=== PATIENT | female | born 1990 | race African-American/Black ===

== ENCOUNTER 2016-04-10 21:39 | Emergency (ER) | payer MEDICAID, OTHER ==
[~2016-04-10] VITALS: Ht 170.2 cm; Wt 93.0 kg
[~2016-04-10 21:39] MED LIST: FOLI1 PO; HYDR25 PO; PRED20 PO; RANI300T PO
[2016-04-10 21:40] VITALS: BP 116/67; PULSE 96; RESP 18; TEMP 98.1; O2SAT 93
[2016-04-10] MEDS ORDERED: FLUORESCEIN SOD 1 MG STRIP RIGHT EYE ONE (22:45)
[2016-04-10] MEDS ORDERED: PROPARACAINE HCL 0.5% OPHT SOLN 15 ML BTL RIGHT EYE ONE (22:45)
[2016-04-10] MEDS ORDERED: POLY10O RIGHT EYE (22:55)
--- NOTE | 2016-04-10 22:56 | PD ---
HPI Chief Complaint: Facial Pain or Swelling Time Seen by Provider: 22:31 Travel History International Travel<30 days: No Contact w/Intl Traveler<30days: No Traveled to known affect area: No History of Present Illness HPI 25-year-old female here for evaluation of right eye pain and discharge. Symptoms have been worsening over the last 2-3 days. The patient reports that she felt as though something bit her in the corner of her eye while sleeping the other night. She then woke up with eye pain and discharge. She is having some blurred vision in her eye. No fevers or chills. She does have some upper respiratory symptoms including a cough. She does not wear contacts. PFS Past Medical History Anemia: Yes Diminished Hearing: No ?: Not LMP: 04/05/16 : 2 Para: 2 Past Surgical History Appendectomy: Yes (CSEC) Section: Yes (X 1) Social History Alcohol Use: No Tobacco Use: No Substance Use: No Allergies-Medications (Allergen,Severity, Reaction): Uncoded Allergies: BANANAS (Allergy, Severe, 10/17/14) ANAPHYLAXIS Reported Meds & Prescriptions Reported Meds & Active Scripts Active Review of Systems Except as stated in HPI: all other systems reviewed are Neg Physical Exam Narrative GENERAL: Well-developed, well-nourished, comfortable, no acute distress. SKIN: Warm and dry. HEAD: Atraumatic. Normocephalic. EYES: Mild right periorbital swelling without warmth or erythema. Pupils equal , round, 3 mm, reactive to light. EOMI. No proptosis. Right eye there is significant scleral injection with scant purulent drainage. No hyphema, no hypopyon. Fluorescein stain shows no corneal abrasion. Intraocular pressure in the right eye is 18 mmHg. ENT: No nasal bleeding or discharge. Mucous membranes pink and moist. MUSCULOSKELETAL: No obvious deformities. No clubbing. No cyanosis. No edema. NEUROLOGICAL: Awake and alert. No obvious cranial nerve deficits. Motor grossly within normal limits. Normal speech. PSYCHIATRIC: Appropriate mood and affect; insight and judgment normal. Data Data Last Documented VS Vital Signs Date Time Temp Pulse Resp B/P Pulse Ox O2 Delivery O2 Flow Rate FiO2 04/10/16 22:17 18 04/10/16 21:40 98.1 96 116/67 93 Room Air Orders Proparacaine 0.5% Opth Soln (Alcaine 0.5 (04/10/16 22:45) Fluorescein Strip (Gxymt-C-Axnfwz A.T.) (04/10/16 22:45) Polymyxin/Trimethop Opht Soln (Polytrim (04/10/16 23:00) MDM Medical Decision Making Medical Screen Exam Complete: Yes Emergency Medical Condition: Yes Differential Diagnosis Conjunctivitis, episcleritis, scleritis, iritis, corneal abrasion, acute angle- closure glaucoma not likely Narrative Course This is a 25-year-old female who has physical exam findings and symptoms consistent with bacterial conjunctivitis. There is no proptosis. Extraocular movements are intact. There are no physical exam findings to suggest orbital cellulitis. Intraocular pressure in the right eye is 18. There are no corneal abrasions. No foreign bodies. At this point the plan is to start her on antibiotic eyedrops and follow up with an payroll accounting specialist this week. She was informed on when to return to the emergency department. She verbalizes understanding and agreement with plan. Diagnosis Primary Impression: Conjunctivitis Qualified Code: H10.9 - Conjunctivitis of right eye, unspecified conjunctivitis type Referrals: Shasta Giordano MD 3 days Eye doctor Additional Instructions: Follow-up with payroll accounting specialist Dr. Giordano or payroll accounting specialist of your choice this week. Return to the emergency department forcing symptoms or any other concerns. Scripts Polymyxin B-Trimethoprim Opth Drops (Polytrim Opth Drops)10,000-0.1 Unit/Ml-% Soln1 Drop RIGHT EYE Q6HR 10 Days Ref 0 Prov:Samuel Webster MD 04/10/16 Disposition: 01 DISCHARGE HOME Condition: Stable Samuel Webster MD Apr 10, 2016 22:55
[2016-04-10] MEDS ORDERED: POLYMYXIN/TRIMETHOPRIM OPHT SOLN 10 ML BTL RIGHT EYE ONE (23:00)
== END 2016-04-10 23:28 | disposition home or self-care (01) ==
LOC: NEPA 21:39
DX: H10.9 Unspecified conjunctivitis (principal)
CPT/HCPCS: 99283

== ENCOUNTER 2017-06-10 22:48 | Emergency (ER) | payer OTHER ==
[~2017-06-10 22:48] MED LIST changes: -FOLI1 PO; -HYDR25 PO; +POLY10O RIGHT EYE; -PRED20 PO; -RANI300T PO
[2017-06-10 23:09] VITALS: BP 135/77; PULSE 93; RESP 18; TEMP 98.6; O2SAT 100
--- NOTE | 2017-06-10 23:28 | PD ---
HPI Chief Complaint: GI Complaint Time Seen by Provider: 23:17 Travel History International Travel<30 days: No Contact w/Intl Traveler<30days: No Traveled to known affect area: No History of Present Illness HPI The patient is a 27 year old female who presents to the [facility] emergency department with a history of nausea and vomiting that began a week ago. She reports that she has had vomiting approximately 3 times per day on average. She denies having any diarrhea. She continues to move her bowels regularly. She denies having any abdominal pain except when she is retching. She denies having any vaginal bleeding or vaginal discharge. She denies having any dysuria, hematuria, urinary urgency, or frequency. She reports that her last menstrual cycle was in March 2017. She reports that she was last sexually active 2 months ago. She has not taken a test prior to coming to the emergency department. She is a with 1 delivery 11 years ago. On review of systems otherwise, the patient denies having any known recent fevers, cough or congestion, neck pain, chest pain, shortness of breath, or neurologic symptoms. [facility] Past Medical History Narrative Medical The patient's past medical history is significant for sickle cell trait Anemia: Yes Diminished Hearing: No ?: Unknown LMP: 03/2017 : 2 Para: 2 Past Surgical History Narrative Surgical The patient's past surgical history is significant for a Appendectomy: Yes (CSEC) Section: Yes (X 1) Social History Alcohol Use: No Tobacco Use: No Substance Use: No Allergies-Medications (Allergen,Severity, Reaction): Uncoded Allergies: BANANAS (Allergy, Severe, 10/17/14) ANAPHYLAXIS Reported Meds & Prescriptions Reported Meds & Active Scripts Active Macrobid (Nitrofurantoin Monohydrate Macrocrystals) 100 Mg Capsule 100 Mg PO BID 7 Days Zofran Odt (Ondansetron Odt) 4 Mg Tab 4 Mg SL Q6HR PRN Review of Systems Except as stated in HPI: all other systems reviewed are Neg General / Constitutional: No: Fever Eyes: No: Visual changes HENT: No: Headaches Cardiovascular: No: Chest Pain or Discomfort Respiratory: No: Shortness of Breath Gastrointestinal: Positive: Nausea, Vomiting, No: Abdominal Pain Genitourinary: No: Dysuria Musculoskeletal: No: Pain Skin: No Rash Neurologic: No: Weakness, Focal Abnormalities, Change in Mentation, Slurred Speech, Sensory Disturbance Psychiatric: No: Depression Endocrine: No: Polydipsia Hematologic/Lymphatic: No: Easy Bruising Physical Exam Narrative General: The patient is a well-developed well-nourished female in no acute distress. Head and Neck exam: Head is normocephalic atraumatic. Eyes: EOMI, pupils are equal round and reactive to light. Nose: Midline septum with pink mucous membranes Mouth: Dentition unremarkable. Moist mucus membranes. Posterior oropharynx is not erythematous. No tonsillar hypertrophy. Uvula midline. Airway patent. Neck: No palpable lymphadenopathy. No nuchal rigidity. No thyromegaly. Cardiovascular: Regular rate and rhythm without murmurs, gallops, or rubs. No pulse deficit to the extremities. Lungs: Clear to auscultation bilaterally. No wheezes, rhonchi, or rales. Abdomen: Soft, without tenderness to palpation in all 4 quadrants of the abdomen. No guarding, rebound, or rigidity. Normal bowel sounds are audible. No tenderness on palpation of McBurney's point. Negative Caldwell sign. Extremities: No clubbing, cyanosis, or edema. 2+ pulses in all 4 extremities. No calf tenderness on palpation. Back: No costovertebral angle tenderness to palpation. Neurologic Exam: Grossly nonfocal. Skin Exam: No rash noted. Intact skin that is warm and dry. Data Data Last Documented VS Vital Signs Date Time Temp Pulse Resp B/P (MAP) Pulse Ox O2 Delivery O2 Flow Rate FiO2 06/10/17 23:09 98.6 93 18 135/77 (96) 100 Orders Orders Urinalysis - C+S If Indicated (06/10/17 23:22) Ed Urine Pregnancytest Poc (06/10/17 23:22) Ondansetron Odt (Zofran Odt) (06/10/17 23:45) Oral Rehydration (06/10/17 23:33) Labs Laboratory Tests Test 06/10/17 23:27 Urine Color LIGHT-YELLOW Urine Turbidity CLEAR Urine pH 6.0 Urine Specific [place] 1.009 Urine Protein NEG mg/dL Urine Glucose (UA) NEG mg/dL Urine Ketones NEG mg/dL Urine Occult Blood NEG Urine Nitrite NEG Urine Bilirubin NEG Urine Urobilinogen LESS THAN 2.0 MG/DL Urine Leukocyte Esterase SMALL Urine RBC 1 /hpf Urine WBC LESS THAN 1 /hpf Urine Squamous Epithelial Cells 7 /hpf Urine Bacteria RARE /hpf Microscopic Urinalysis Comment CULT NOT INDICATED MDM Medical Decision Making Medical Screen Exam Complete: Yes Emergency Medical Condition: Yes Medical Record Reviewed: Yes Differential Diagnosis Vomiting related to , versus viral syndrome, versus bowel obstruction Narrative Course During the course of the patient's emergency department visit, the patient's history, examination, and differential diagnosis were reviewed with the patient. The patient had a urine sent for analysis, bedside test was done. The patient's bedside test was positive for . The patient and I had a discussion that the patient's nausea vomiting is likely related to . She did have nausea and vomiting with her last . Her urine will be sent for analysis per The patient was initially provided Zofran oral dissolving tablet, oral rehydration therapy was started. The patient's laboratory studies were reviewed and remarkable for a urinalysis that shows small leukocyte esterase, 1 RBC, less than 1 WBC, rare bacteria, culture not indicated. Given the bacteriuria in the patient will be treated with Macrobid. The patient reports taking Naprosyn for pain intermittently. I explained that this would not be a good option in , therefore I recommended she discontinue this and instead take Tylenol as needed for discomfort. She is instructed to take Tylenol 650 mg p.o. every 6 hours as needed pain. The patient will be discharged home with Zofran. The patient will be given information regarding following up with a manager contracting. The patient is resting comfortably and feels better, is alert and in no distress. The patient's results and examination findings were discussed with the patient. The repeat examination is unremarkable and benign. The history, exam, diagnostic testing, and current condition do not suggest any significant pathology to warrant further testing, continued ED treatment, admission, or surgical evaluation at this point. The vital signs have been stable. The patient does not have uncontrollable pain, intractable vomiting, or other significant symptoms. The patient's condition is stable and appropriate for discharge. The patient will pursue further outpatient evaluation with a primary care physician or other designated or consulting physician as indicated in the discharge instructions. The patient expressed understanding and was agreeable with this plan. Diagnosis Primary Impression: Vomiting affecting Additional Impression: Asymptomatic bacteriuria during Referrals: Cecy Frazier MD 1 week [facility] 1 week Patient Instructions: General Instructions, Nausea and Vomiting in ( ED) Additional Instructions: The patient reports taking Naprosyn for pain intermittently. I explained that this would not be a good option in , therefore I recommended she discontinue this and instead take Tylenol as needed for discomfort. She is instructed to take Tylenol 650 mg p.o. every 6 hours as needed pain. The patient will be discharged home with Zofran. The patient will be given information regarding following up with a manager contracting. Med/Other Pt SpecificInfo: Prescription(s) given Scripts Nitrofurantoin Monohydrate Macrocrystals (Macrobid) 100 Mg Capsule 100 MG PO BID for Infection for 7 Days, #14 CAP 0 Refills Prov: Nela Gaytan MD 06/11/17 Ondansetron Odt (Zofran Odt) 4 Mg Tab 4 MG SL Q6HR Y for Nausea/Vomiting, #7 TAB 0 Refills Prov: Nela Gaytan MD 06/10/17 Disposition: DISCHARGE HOME Condition: Stable Nela Gaytan MD Jun 10, 2017 23:28
[2017-06-10] MEDS ORDERED: ZOFR4TAB3 SL (23:41)
[2017-06-10] MEDS ORDERED: ONDANSETRON ODT 4 MG TAB PO ONE (23:45)
[2017-06-11 00:14] LABS: BACTERIA, URINE RARE /hpf; BILIRUBIN, URINE NEG (NEG); BLOOD, URINE NEG (NEG); GLUCOSE,URINE NEG (NEG); KETONE, URINE NEG (NEG); NITRITE,URINE NEG (NEG); SQUAMOUS EPITHELIAL CELL URINE 7 /hpf (0-5); URINE COLOR LIGHT-YELLOW (YELLW/STRAW); URINE LEUKOCYTE ESTERASE SMALL (NEG)
[2017-06-11] MEDS ORDERED: MACR100C2 PO (00:18)
== END 2017-06-11 00:39 | disposition home or self-care (01) ==
LOC: NEPE 22:48
DX: O21.9 Vomiting of pregnancy, unspecified (principal); O26.899 Other specified pregnancy related conditions, unspecified trimester; R82.71 Bacteriuria; Z3A.00 Weeks of gestation of pregnancy not specified; D57.3 Sickle-cell trait
CPT/HCPCS: 81001; 84703; 99283